=== PATIENT | male | born 1960 | race Caucasian/White ===

== ENCOUNTER 2025-04-08 14:06 | Outpatient (AMB) | payer MEDICARE, MEDICAID, SELFPAY ==
--- NOTE | 2025-04-08 14:15 | MHC.PC.OV ---
Vital Signs 04/08/25 14:27 Height 6 ft 0.44 in Weight 194 lb BMI 26.0 BP 124/86 Blood Pressure Location Rt brachial Position Sitting Respiration 14 Pulse 70 Pulse Source Pulse Oximeter Pulse Oximetry (%) 100 Oxygen Delivery Method Room Air Intake Visit Reasons: est care Intake Note: New patient visit Data Entry Coordinator Required: No Allergies No Known Allergies Allergy (Verified 04/08/25 14:23) Tobacco use date assessed: 04/08/25 Fall risk assessment: No Falls in past year Last assessed Fall Risk: 04/08/25 Dental Screening Dental Screen Date: 04/08/25 Did you have a dental visit in the last 12 months?: No Did you have a dental problem in the last 6 months where you did not have access to dental care?: No Was dental information given to patient?: Patient has dentist HPI est care HPI Details Patient is a 64-year-old male who presents today to [facility]. He is transferring from [facility]. hx of ddd, vit d deficiency. He states that he would like to run some labs and have some imaging prior to leaving for [facility]. He plans on moving there this summer/early fall. Msk: he has a history of spinal stenosis of the lumbar spine. He does get radiculopathy down both legs. He has had an EMG before and followed with Neurosurgery. 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 He complains today of neck pain x 4 months. He states it is mostly on the right side, sometimes the left is bothered. It does radiate down the right arm at times. Denies any specific injury. At times it does feel like the lymph nodes are swollen in his neck as well and he is not sure if it is related to the neck pain or if he has something such as an infection. No fever, chills, vision changes. Sometimes the neck pain does cause somewhat of a headache. CV: Blood pressure today in the office is 124/86. Colonoscopy: Colonoscopy UTD 2022- due in 2032 PSA: Overdue Low-dose CAT scan screening: Quit smoking a couple of months ago. Has smoked for many years and declines lung cancer screening. He is aware of the risks and he is aware that if caught early lung cancer has a better prognosis. 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 1. Little interest or pleasure in doing things: nearly every day 2. Feeling down, depressed, or hopeless: not at all 3. Trouble falling or staying asleep, or sleeping too much: not at all 4. Feeling tired or having little energy: several days 5. Poor appetite or overeating: not at all 6. Feeling bad about yourself - or that you are a failure or have let yourself or your family down: not at all 7. Trouble concentrating on things, such as reading the newspaper or watching television: not at all 8. Moving or speaking so slowly that other people could have noticed. Or the opposite - being so fidgety or restless that you have been moving around a lot more than usual: not at all 9. Thoughts that you would be better off or of hurting yourself in some way: not at all Total score: 4 Depression Screening Interpretation: Negative Depression Screening Done: Yes 49352 - PHQ-9 Billing: Yes Source: Developed by Drs. Nickolas Stroud, Carey Barr, Cesar Reilly and colleagues, with an educational susie from [employer]. Thrive Questionnaire Date Thrive assessed: 04/01/25 I am a: Patient What is your living situation today?: I have a steady place to live Within the past 12 months, did the food you bought not last and you didn't have the money to get more?: Never true Within the past 12 months, did you worry whether your food would run out before you got money to buy more?: Never true Do you have trouble paying for medicines?: No Do you have trouble getting transportation to medical appointments?: No Do you have trouble paying your heating and electricity bill?: No Do you have trouble taking care of your child, family member or friend?: No Do you have trouble with day-to-day activities such as bathing, preparing meals, shopping, managing finances, etc.?: No Are you currently unemployed and looking for a job?: No Are you interested in more education?: I choose not to answer this question Please select the resources that you would like help with: None Currently or been in a relationship where the following occur: No concerns reported THRIVE Score: 0 AUDIT C Alcohol Use Questionnaire (AUDIT-C) 1. How often do you have a drink containing alcohol?: Never 2. How many drinks containing alcohol do you have on a typical day when you are drinking?: 1 or 2 3. How often do you have six or more drinks on one occasion?: Never Total Score: 0 AVERY-7 AMB Questionnaire AVERY-7 Feeling nervous, anxious, or on edge: 0 = Not at all Not being able to stop or control worryin = Not at all Worrying too much about different things: 0 = Not at all Trouble relaxin = Not at all Being so restless that it is hard to sit still: 0 = Not at all Becoming easily annoyed or irritable: 0 = Not at all Feeling afraid as if something awful might happen: 0 = Not at all Total AVERY-7 score (0-4 normal; 5-9 mild; 10-14 moderate; 15-21 severe): 0 Source: Developed by Drs. Nickolas Stroud, Carey Barr, Cesar Reilly and colleagues, with an educational susie from [employer]. Physical exam (Primary Care) Vital Signs: Last Vital Signs Pulse 70 04/08/25 14:27 Resp 14 04/08/25 14:27 BP 124/86 04/08/25 14:27 Pulse Ox 100 04/08/25 14:27 Oxygen Delivery Method Room Air 04/08/25 14:27 BMI result Body Mass Index 26.0 Tobacco/Smoking Status: Tobacco use Status Tobacco use date assessed 04/08/25 04/08/25 14:32 Patient Tobacco Use Status Former Tobacco user 04/08/25 14:32 e-Cigarette/Vaping Use Never Used 04/08/25 14:32 PHQ-9: PHQ-9 Score PHQ-9: Total score 4 04/08/25 14:32 Depression Screening Interpretation: Negative Thrive Assessment: Date of Thrive Assessment Date Thrive assessed 04/01/25 04/08/25 14:32 Currently or been in a relationship where the following occur: No concerns reported Const Orientation/consciousness: patient oriented x3 HENMT Ears: hearing grossly normal bilaterally Neck Other: There is a mobile, marble-sized lump noted on the posterior right side of the neck. Thyroid: Thyroid normal Lymphatic: no lymphadenopathy noted Chest Other: There is a an approximately 6 in x 5 in subcutaneous lump noted on the left lateral chest wall. Resp Auscultation: clear to auscultation bilaterally Cardio Rate: regular rate Rhythm: regular rhythm Heart sounds: S1 normal heart sound present and S2 normal heart sound present GI Inspection: Yes normal to inspection Palpation (GI): Soft to palpation and Other GI palpation findings present (nontender, no cva tenderness) Auscultation: normoactive bowel sounds Rectal Exam - Male: Yes deferred Skin General skin exam: no rashes or lesions noted Neuro General: patient oriented x3, gait normal and no focal motor deficits Coding Level of Care Code New Pt Level 4 (49730) Complex EM visit Add On G2211 Diagnoses Lumbar pain with radiation down both legs M54.50; M79.604; M79.605 Chronic neck pain M54.2; G89.29 Dyslipidemia E78.5 Polyarthralgia M25.50 Former smoker Z87.891 Vitamin D deficiency E55.9 Lump on neck R22.1 Lump in chest R22.2 Additional Codes PHQ-9 - 18405 - PHQ-9 Billing: Yes ([id number]) Assessment & Plan Assessment & Plan (1) Lumbar pain with radiation down both legs: Code(s): M54.50 - Low back pain, unspecified; M79.604 - Pain in right leg; M79.605 - Pain in left leg Category: Medical Plan: Stable. Does not wish for further workup. (2) Chronic neck pain: Code(s): M54.2 - Cervicalgia; G89.29 - Other chronic pain Category: Medical Plan: X-ray ordered. Labs ordered. We will follow up pending test results (3) Dyslipidemia: Code(s): E78.5 - Hyperlipidemia, unspecified Category: Medical Plan: Reports a history of high cholesterol and states that he would be against statins but wants to know what his labs look like. (4) Polyarthralgia: Code(s): M25.50 - Pain in unspecified joint Category: Medical Plan: Labs ordered (5) Former smoker: Code(s): Z87.891 - Personal history of nicotine dependence Category: Social Hx Plan: He will let me know if he changes his mind in regards to lung cancer screening. He is asymptomatic. (6) Vitamin D deficiency: Code(s): E55.9 - Vitamin D deficiency, unspecified Category: Medical Plan: Vitamin-D ordered (7) Lump on neck: Code(s): R22.1 - Localized swelling, mass and lump, neck Category: Medical Plan: Ultrasound ordered (8) Lump in chest: Code(s): R22.2 - Localized swelling, mass and lump, trunk Category: Medical Plan: Ultrasound ordered and referral to General surgery Orders: Orders Comprehensive [place]. Panel Fast Today E78.5 - Hyperlipidemia, unspecified, G89.29 - Other chronic pain, M25.50 - Pain in unspecified joint, M54.2 - Cervicalgia, M54.50 - Low back pain, unspecified, M79.604 - Pain in right leg, M79.605 - Pain in left leg, Z87.891 - Personal history of nicotine dependence Hemoglobin A1c Today E78.5 - Hyperlipidemia, unspecified, G89.29 - Other chronic pain, M25.50 - Pain in unspecified joint, M54.2 - Cervicalgia, M54.50 - Low back pain, unspecified, M79.604 - Pain in right leg, M79.605 - Pain in left leg, R73.01 - Impaired fasting glucose, Z87.891 - Personal history of nicotine dependence Lipid Panel Today E78.5 - Hyperlipidemia, unspecified, G89.29 - Other chronic pain, M25.50 - Pain in unspecified joint, M54.2 - Cervicalgia, M54.50 - Low back pain, unspecified, M79.604 - Pain in right leg, M79.605 - Pain in left leg, Z87.891 - Personal history of nicotine dependence UA CC w/rflx Micro + Cult Today E78.5 - Hyperlipidemia, unspecified, G89.29 - Other chronic pain, M25.50 - Pain in unspecified joint, M54.2 - Cervicalgia, M54.50 - Low back pain, unspecified, M79.604 - Pain in right leg, M79.605 - Pain in left leg, Z13.220 - Encounter for screening for lipoid disorders, Z87.891 - Personal history of nicotine dependence TSH reflex Free T4 Today E78.5 - Hyperlipidemia, unspecified, G89.29 - Other chronic pain, M25.50 - Pain in unspecified joint, M54.2 - Cervicalgia, M54.50 - Low back pain, unspecified, M79.604 - Pain in right leg, M79.605 - Pain in left leg, Z87.891 - Personal history of nicotine dependence Prostate Specific Antigen Scr Today E78.5 - Hyperlipidemia, unspecified, G89.29 - Other chronic pain, M25.50 - Pain in unspecified joint, M54.2 - Cervicalgia, M54.50 - Low back pain, unspecified, M79.604 - Pain in right leg, M79.605 - Pain in left leg, Z01.89 - Encounter for other specified special examinations, Z87.891 - Personal history of nicotine dependence Lyme IgG/IgM w/reflex to WB Today E78.5 - Hyperlipidemia, unspecified, G89.29 - Other chronic pain, M25.50 - Pain in unspecified joint, M54.2 - Cervicalgia, M54.50 - Low back pain, unspecified, M79.604 - Pain in right leg, M79.605 - Pain in left leg, Z87.891 - Personal history of nicotine dependence Vitamin B12 and Folate Today E78.5 - Hyperlipidemia, unspecified, G89.29 - Other chronic pain, M25.50 - Pain in unspecified joint, M54.2 - Cervicalgia, M54.50 - Low back pain, unspecified, M79.604 - Pain in right leg, M79.605 - Pain in left leg, Z87.891 - Personal history of nicotine dependence Rheumatoid Factor Today E78.5 - Hyperlipidemia, unspecified, G89.29 - Other chronic pain, M25.50 - Pain in unspecified joint, M54.2 - Cervicalgia, M54.50 - Low back pain, unspecified, M79.604 - Pain in right leg, M79.605 - Pain in left leg, Z87.891 - Personal history of nicotine dependence US soft tiss head and/or neck Today R22.1 - Localized swelling, mass and lump, neck, R22.2 - Localized swelling, mass and lump, trunk Complete Blood Count Auto Diff Today E78.5 - Hyperlipidemia, unspecified, G89.29 - Other chronic pain, M25.50 - Pain in unspecified joint, M54.2 - Cervicalgia, M54.50 - Low back pain, unspecified, M79.604 - Pain in right leg, M79.605 - Pain in left leg, Z87.891 - Personal history of nicotine dependence Magnesium Today E78.5 - Hyperlipidemia, unspecified, G89.29 - Other chronic pain, M25.50 - Pain in unspecified joint, M54.2 - Cervicalgia, M54.50 - Low back pain, unspecified, M79.604 - Pain in right leg, M79.605 - Pain in left leg, Z87.891 - Personal history of nicotine dependence GENTRY Reflex Titer and Pattern Today E78.5 - Hyperlipidemia, unspecified, G89.29 - Other chronic pain, M25.50 - Pain in unspecified joint, M54.2 - Cervicalgia, M54.50 - Low back pain, unspecified, M79.604 - Pain in right leg, M79.605 - Pain in left leg, Z87.891 - Personal history of nicotine dependence Erythrocyte Sedimentation Rate Today E78.5 - Hyperlipidemia, unspecified, G89.29 - Other chronic pain, M25.50 - Pain in unspecified joint, M54.2 - Cervicalgia, M54.50 - Low back pain, unspecified, M79.604 - Pain in right leg, M79.605 - Pain in left leg, Z87.891 - Personal history of nicotine dependence Vitamin D 25-OH Total Today E78.5 - Hyperlipidemia, unspecified, G89.29 - Other chronic pain, M25.50 - Pain in unspecified joint, M54.2 - Cervicalgia, M54.50 - Low back pain, unspecified, M79.604 - Pain in right leg, M79.605 - Pain in left leg, Z87.891 - Personal history of nicotine dependence XR cervical spine 3V Today M54.2 - Cervicalgia, R22.1 - Localized swelling, mass and lump, neck, R22.2 - Localized swelling, mass and lump, trunk US chest Today R22.2 - Localized swelling, mass and lump, trunk Referrals General Surgery Referral R22.1 - Localized swelling, mass and lump, neck, R22.2 - Localized swelling, mass and lump, trunk
--- OUTSIDE RECORDS SUMMARY | 2025-04-08 14:15 | XMS_ITS | Referral Summary ---
Author Organization [facility] Address [address] [id number] Care Team Providers Care Web Developer Programmer Name Role Phone Migonn Stone Primary Care Provider Allergies No known active allergies Medications pantoprazole DR (PROTONIX) 20 mg tablet Take 1 tablet (20 mg total) by mouth once a day. 20 tablet 03/13/2022 Active Social History Tobacco Use Types Packs/Day Years Used Date Smoking Tobacco: Never Assessed Sex and Gender Information Value Date Recorded Sex Assigned at Not on file Legal Sex Male 3:59 PM EST Gender Identity Not on file Sexual Orientation Not on file Last Filed Vital Signs Vital Sign Reading Time Taken Comments Blood Pressure 147/97 03/13/2022 10:00 AM EDT Pulse 61 03/13/2022 12:00 PM EDT Temperature 36.3 ??C (97.3 ??F) 03/13/2022 5:46 AM ED T Respiratory Rate 15 03/13/2022 12:00 PM EDT Oxygen Saturation 100% 03/13/2022 12:00 PM EDT Inhaled Oxygen Concentration - - Weight 79.4 kg (175 lb) 03/13/2022 5:46 AM EDT Height 182.9 cm (6') 03/13/2022 5:46 AM EDT Body Mass Index 23.73 03/13/2022 5:46 AM EDT Plan of Treatment Not on file Insurance [facility] on file HS/FREE CARE Care Teams Web Developer Programmer Relationship Specialty Start Date End Date Mignon Stone PCP - General 03/13/22
[2025-04-08 14:27] VITALS: BP 124/86; PULSE 70; RESP 14; O2SAT 100; BMI 26.0
== END 2025-04-08 15:07 | disposition home or self-care (01) ==
LOC: HO.HMCFM 14:07
PROVIDERS: PCP Physician Assistant; Visit Provider Physician Assistant
DX: M54.50 Low back pain, unspecified (principal); M79.604 Pain in right leg; M79.605 Pain in left leg; M54.2 Cervicalgia; G89.29 Other chronic pain; E78.5 Hyperlipidemia, unspecified; M25.50 Pain in unspecified joint; Z87.891 Personal history of nicotine dependence; E55.9 Vitamin D deficiency, unspecified; R22.1 Localized swelling, mass and lump, neck; R22.2 Localized swelling, mass and lump, trunk

== ENCOUNTER → 2025-04-08 14:06 | Outpatient (BNVA) | payer MEDICARE, SELFPAY | PROVIDERS: PCP Physician Assistant; Visit Provider Physician Assistant | DX: M54.50 Low back pain, unspecified (principal); M79.604 Pain in right leg; M79.605 Pain in left leg; M54.2 Cervicalgia; G89.29 Other chronic pain; E55.9 Vitamin D deficiency, unspecified; R22.1 Localized swelling, mass and lump, neck; R22.2 Localized swelling, mass and lump, trunk; Z87.891 Personal history of nicotine dependence | CPT/HCPCS: 96127; 99202 ==

== ENCOUNTER 2025-04-09 07:51 | Outpatient (REF) | payer MEDICARE, SELFPAY ==
--- OUTSIDE RECORDS SUMMARY | 2025-04-09 07:55 | XMS_ITS | Referral Summary ---
Author Organization [facility] Address [address] [id number] Care Team Providers Care Customer Records Division Supervisor Name Role Phone Mignon Stone Primary Care Provider Allergies No known [...] Plan of Treatment Not on file [facility] Care Teams Customer Records Division Supervisor Relationship Specialty Start Date End Date Mignon Stone PCP - General 03/13/22
[2025-04-09 11:19] LABS: MANUAL DIFF FLAG NO
[2025-04-09 11:35] LABS: Basophils Absolute Auto 0.1 X10*3/uL (0.0-0.2); Basophils Percent Auto 0.9 % (0-2); Eosinophils Absolute Auto 0.3 X10*3/uL (0.0-0.4); Eosinophils Percent Auto 3.9 % (0-4); Hematocrit 44.7 % (42.0-52.0); Hemoglobin 15.8 g/dl (14.0-18.0); Imm Gran Abs Auto 0.07 X10*3/uL (0.00-0.03); Lymphocytes Absolute Auto 2.3 X10*3/uL (1.2-4.9); Lymphocytes Percent Auto 33.5 % (20-40); Mean Corpuscular HGB Conc 35.3 g/dl (31.0-36.0); Mean Corpuscular Hemoglobin 30.8 pg (27.0-33.0); Mean Corpuscular Volume 87.1 fL (80.0-98.0); Mean Platelet Volume 10.7 fL (9.4-12.4); Monocytes Absolute Auto 0.7 X10*3/uL (0.1-1.2); Monocytes Percent Auto 9.6 % (2-11); Neutrophils Absolute Auto 3.6 x10*3/uL (2.0-8.3); Neutrophils Percent Auto 51.1 % (45-73); Platelet Count 243 X10*3/uL (160-400); Red Blood Count 5.13 X10*6/uL (4.60-5.80); Red Cell Distribution Width 13.1 % (11.0-16.0)
[2025-04-09 11:48] LABS: Estimated Average Glucose 97 mg/dL; Hemoglobin A1C 128.1337 umol/L; Total Hemoglobin (HGBA1C) 4112.2933 umol/L
[2025-04-09 11:50] LABS: Rheumatoid Factor < 13.0 IU/mL (<15.0)
[2025-04-09 12:07] LABS: Alanine Aminotransferase 44 U/L (0-40); Albumin Level 4.2 g/dL (3.5-5.0); Alkaline Phosphatase 79 U/L (39-117); Anion Gap 11 (12-20); Aspartate Amino Transferase 31 U/L (5-37); Bilirubin Total 0.5 mg/dL (0.0-1.0); Blood Urea Nitrogen 20 mg/dL (9-16); Carbon Dioxide 27 mmol/L (22-29); Chloride 108 mmol/L (96-108); Cholesterol 211 mg/dL (<200); Estimated Glomerular Filt Rate > 60; Glucose Fasting 96 mg/dL (60-99); HDL Cholesterol 45 mg/dL (>40); LDL Cholesterol Calculated 137 mg/dL (<100); Potassium 4.3 mmol/L (3.3-5.1); Sodium 142 mmol/L (135-145); TSH reflex Free T4 1.48 uIU/mL (0.32-4.0); Total Protein 6.9 g/dL (6.5-8.0); Triglycerides 149 mg/dL (<150); Vitamin D 25-OH Total 83.5 ng/mL (>30)
[2025-04-09 12:17] LABS: Erythrocyte Sedimentation Rate 2 MM/HR (0-15)
[2025-04-09 12:29] LABS: Folate 13.4 ng/mL (> or = 4.0); Prostate Specific Antigen Scr 1.69 ng/mL (<0.05-4.0); Vitamin B12 293 pg/mL (200-900)
[2025-04-09 14:36] LABS: Appearance Urine Clear; Color Urine Yellow; Glucose Urine UA Negative (Negative); Leukocyte Esterase Urine Negative (Negative); Nitrite Urine Negative (Negative); PH 6.5 (5.0-9.0); Specific Gravity - Urine 1.015 (1.005-1.025); Urine Blood Negative (Negative); Urine Ketones Negative (Negative); Urine Protein Negative (Neg-Trace)
[2025-04-10 09:08] LABS: Lyme Abs Screen <0.90 index
[2025-04-15 08:19] LABS: Anti Nuclear Antibody Screen POSITIVE (NEGATIVE); Anti Nuclear Antibody Titer 1:40 titer
== END 2025-04-09 07:52 | disposition home or self-care (01) ==
LOC: HO.WFDLDS 07:51
PROVIDERS: Visit Provider Physician Assistant
DX: M54.50 Low back pain, unspecified (principal); M79.604 Pain in right leg; M79.605 Pain in left leg; M54.2 Cervicalgia; G89.29 Other chronic pain; E78.5 Hyperlipidemia, unspecified; M25.50 Pain in unspecified joint; Z87.891 Personal history of nicotine dependence; Z01.89 Encounter for other specified special examinations; R73.01 Impaired fasting glucose; Z13.220 Encounter for screening for lipoid disorders; Z12.5 Encounter for screening for malignant neoplasm of prostate
CPT/HCPCS: 36415; 80053; 80061; 81003; 82306; 82607; 82746; 83036; 83735; 84153; 84443; 85025; 85652; 86038; 86039; 86431; 86617; 86618

== ENCOUNTER 2025-04-23 08:35 | Outpatient (REF) | payer MEDICARE, SELFPAY ==
--- NOTE | ~2025-04-23 | US_ITS ---
CLINICAL HISTORY: R22.2 - Localized swelling, mass and lump, trunk Ultrasound of the soft tissues of the abdominal wall and posterior neck COMPARISON: None FINDINGS: Dedicated ultrasound imaging was performed over the anterior abdominal wall in the left upper quadrant. In the region of concern there is a heterogeneous avascular isoechoic well-defined lesion with thin internal septations parallel to transducer measuring in total 4.9 x 1.0 x 3.7 cm. No capsular disruption or surrounding hyperemia. Dedicated ultrasound imaging was performed along the right posterior neck. In the region of concern there is a heterogeneous avascular mildly hypoechoic ill-defined lesion with increased through transmission measuring in total 1.0 x 0.5 x 0.8 cm. No definite communication through the overlying skin is identified. IMPRESSION: 1. 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 No aggressive features. 2. Indeterminate ill-defined complex avascular lesion along the posterior right neck measuring up to 1.0 cm. This could represent a sebaceous cyst, possibly previously ruptured, although is technically indeterminate and there is no definite communication through the overlying skin. Short-term follow-up imaging is likely appropriate. This document has been electronically signed by: Rk Sanders MD on 04/23/2025 16:26:12
--- OUTSIDE RECORDS SUMMARY | 2025-04-23 08:48 | XMS_ITS | Referral Summary ---
Author Organization [facility] Address [address] [place] [address] Care Team Providers Care Screen Printing Cloth Spreader Name Role Phone Mignon Stone Primary Care [...] Plan of Treatment Not on file Insurance [facility] on file HS/FREE CARE Care Teams Screen Printing Cloth Spreader Relationship Specialty Start Date End Date Mignon Stone PCP - General 03/13/22
== END 2025-04-23 08:36 | disposition home or self-care (01) ==
LOC: HO.HMGCX 08:35
PROVIDERS: PCP Physician Assistant; Visit Provider Physician Assistant
DX: R22.2 Localized swelling, mass and lump, trunk (principal)
CPT/HCPCS: 76604

== ENCOUNTER → 2025-04-23 09:10 | Outpatient (BNV) | payer MEDICARE, MEDICAID, SELFPAY | PROVIDERS: PCP Physician Assistant; Visit Provider Radiology Diagnostic Radiology | DX: R22.2 Localized swelling, mass and lump, trunk (principal) | CPT/HCPCS: 76604 ==

== ENCOUNTER 2025-04-28 10:39 | Outpatient (AMB) | payer MEDICARE, MEDICAID, SELFPAY ==
--- NOTE | 2025-04-28 10:02 | A.OFFPC_ITS ---
Intake Visit Reasons: concern of thyroid issue/throat issue Intake Note: Concerned of thyroid issue, cancer, ect. Has been having sob lately. Had to buy his own over the counter inhaler. Community Center Coordinator Required: No Allergies No Known Allergies Allergy (Verified 04/28/25 10:03) Medication List - Last Reconciled 04/28/25 by Hedy Callaway PA-C acetaminophen (Tylenol) 650 mg PO Q6H PRN ibuprofen 200 mg PO Q6H PRN multivitamin 1 tab PO DAILY Tobacco use date assessed: 04/28/25 Dental Screening Dental Screen Date: 04/08/25 HPI concern of thyroid issue/throat issue HPI0 Details Patient is a 64-year-old male who presents today for a follow up. He is relatively new here. hx of ddd, vit d deficiency. HEENT: He does complain today of ongoing sore throat. When I saw him at his visit he complained of neck pain for about 4 months mostly on the right side. He says it still hurts some but the almost feels like there is something internal. He states he did not mention it last time because he did not think it meant anything. He does not notice any discoloration of the inside of his mouth or any increased redness. On our telehealth today he does not notice that anything looks enlarged or swollen. He states that his lymph nodes feel a little bit enlarged on the right side only but nothing on the inside of his mouth. He did have a neck ultrasound which showed a possible cyst. He states that it feels like the inside of his throat gets swollen but he does not really have any significant pain with it. He does not notice a change with swallowing. No difficulty swallowing or weight loss. He states sometimes it just feels like the lymph nodes get swollen. He did states that he does not have any heartburn. He does drink a lot of coffee. He is a former smoker. No fevers or chills. He states he wonders if he has allergies but he does not have any rhinorrhea or postnasal drip. He has not tried an allergy pill. He did not yet get the neck x-ray done. Msk: he has a history of spinal stenosis of the lumbar spine. He does get radiculopathy down both legs. He has had an EMG before and followed with Neur osurgery. 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 He complains today of neck pain x 4 months. He states it is mostly on the right side, sometimes the left is bothered. It does radiate down the right arm at times. Denies any specific injury. He states he has multiple joint pains but can live with them. Colonoscopy: Colonoscopy UTD 2022- due in 2032 PSA: Overdue Low-dose CAT scan screening: Quit smoking a couple of months ago. Has smoked for many years and declines lung cancer screening. 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) Questionnaire Thrive Questionnaire Date Thrive assessed: 04/01/25 Physical exam (Primary Care) Tobacco/Smoking Status: Tobacco use Status Tobacco use date assessed 04/28/25 04/28/25 10:04 Patient Tobacco Use Status Former Tobacco user 04/28/25 10:04 e-Cigarette/Vaping Use Never Used 04/28/25 10:04 Thrive Assessment: Date of Thrive Assessment Date Thrive assessed 04/01/25 04/28/25 10:04 Telehealth Telehealth Telehealth Platform: Telephone Location of provider rendering services: practice address Location of patient: address on file Patient Identification confirmed using: Name, : Yes Telehealth method: voice only Patient verbally consented to treatment: Yes Patient verbally consented to billing insurance company: Yes Patient informed of any privacy concerns related to visit: Yes Minutes spent on Phone/Video with Pt.: 38 Results Reviewed Results Reviewed: Laboratory Tests 04/09/25 07:51 WBC 7.0 RBC 5.13 Hgb 15.8 Hct 44.7 Plt Count 243 Sodium 142 Potassium 4.3 Chloride 108 Carbon Dioxide 27 Anion Gap 11 L BUN 20 H Creatinine 1.00 Estimated GFR > 60 Fasting Glucose 96 Hemoglobin A1c % 5.0 Calcium 9.0 Magnesium 2.0 Total Bilirubin 0.5 AST 31 ALT 44 H Alkaline Phosphatase 79 Total Protein 6.9 Albumin 4.2 Triglycerides 149 Cholesterol 211 H LDL Cholesterol, Calc 137 H HDL Cholesterol 45 PSA Screen 1.69 Vitamin B12 293 25-OH Vitamin D Total 83.5 TSH 1.48 Rheumatoid Factor < 13.0 GENTRY Screen POSITIVE A GENTRY Titer 1:40 H GENTRY Pattern A Lyme Screen IgG & IgM <0.90 IMPRESSION: 1. 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 No aggressive features. 2. Indeterminate ill-defined complex avascular lesion along the posterior right neck measuring up to 1.0 cm. This could represent a sebaceous cyst, possibly previously ruptured, although is technically indeterminate and there is no definite communication through the overlying skin. Short-term follow-up imaging is likely appropriate. Coding Level of Care Code Tele Est Pt Level 4 (32776) Diagnoses Low vitamin B12 level R79.89 Positive GENTRY (antinuclear antibody) R76.8 Chronic neck pain M54.2; G89.29 Lump in chest R22.2 Lump on neck R22.1 Dyslipidemia E78.5 Sore throat J02.9 Elevated LFTs R79.89 Assessment & Plan Assessment & Plan (1) Low vitamin B12 level: Code(s): R79.89 - Other specified abnormal findings of blood chemistry Category: Medical Plan: will take supplement (2) Positive GENTRY (antinuclear antibody): Code(s): R76.8 - Other specified abnormal immunological findings in serum Category: Medical Plan: rheumatology reviewed and felt clinically insignficant. pt understands (3) Chronic neck pain: Code(s): M54.2 - Cervicalgia; G89.29 - Other chronic pain Category: Medical Plan: does not want to consult pain management states neck is stable (4) Lump in chest: Code(s): R22.2 - Localized swelling, mass and lump, trunk Category: Medical Plan: Consistent on ultrasound with lipoma Has follow up with neurosurgery (5) Lump on neck: Code(s): R22.1 - Localized swelling, mass and lump, neck Category: Medical Plan: Likely cyst however recommendation from Radiology is follow up. Has scheduled follow up with General surgery ct ordered-prefers this done at [facility]. Advised short term follow up (6) Dyslipidemia: Code(s): E78.5 - Hyperlipidemia, unspecified Category: Medical Plan: Working on his diet. (7) Sore throat: Code(s): J02.9 - Acute pharyngitis, unspecified Plan: CT neck ordered. Has short term follow up We will try Xyzal. (8) Elevated LFTs: Code(s): R79.89 - Other specified abnormal findings of blood chemistry Plan: He will repeat labs next month. Orders: Orders CT soft tissue neck w IV con Today G89.29 - Other chronic pain, J02.9 - Acute pharyngitis, unspecified, M54.2 - Cervicalgia, R22.1 - Localized swelling, mass and lump, neck, Z87.891 - Personal history of nicotine dependence Medications: New levocetirizine (Xyzal) 5 mg PO QPM 30 tabs 0RF
--- OUTSIDE RECORDS SUMMARY | 2025-04-28 12:06 | XMS_ITS | Referral Summary ---
Author Organization [facility] Address [address] [place] [address] Care Team Providers Care Manager Hardware Name Role Phone Mignon Stone Primary Care [...] Plan of Treatment Not on file Insurance [facility] on file HS/FREE CARE Care Teams Manager Hardware Relationship Specialty Start Date End Date Mignon Stone PCP - General 03/13/22
== END 2025-04-28 11:01 | disposition home or self-care (01) ==
LOC: HO.HMCFM 10:39
PROVIDERS: PCP Physician Assistant; Visit Provider Physician Assistant
DX: R79.89 Other specified abnormal findings of blood chemistry (principal); R76.8 Other specified abnormal immunological findings in serum; M54.2 Cervicalgia; G89.29 Other chronic pain; R22.2 Localized swelling, mass and lump, trunk; R22.1 Localized swelling, mass and lump, neck; E78.5 Hyperlipidemia, unspecified; J02.9 Acute pharyngitis, unspecified

== ENCOUNTER → 2025-04-28 10:39 | Outpatient (BNVA) | payer MEDICARE, SELFPAY | PROVIDERS: PCP Physician Assistant; Visit Provider Physician Assistant | DX: G89.29 Other chronic pain (principal); M54.2 Cervicalgia; R22.1 Localized swelling, mass and lump, neck; J02.9 Acute pharyngitis, unspecified; Z87.891 Personal history of nicotine dependence; Z13.89 Encounter for screening for other disorder ==

== ENCOUNTER 2025-04-30 10:35 | Outpatient (REF) | payer MEDICARE, SELFPAY ==
--- NOTE | ~2025-04-30 | XR_ITS ---
EXAMINATION: XR CERVICAL SPINE 2-3 VIEWS HISTORY: M54.2 - Cervicalgia COMPARISON: There are no prior studies available for comparison. FINDINGS: AP, lateral, and open-mouth odontoid views of the cervical spine are submitted. Osseous mineralization is normal. Seven cervical vertebral bodies are identified maintaining normal height and alignment without evidence of fracture or subluxation. There is moderate degenerative disc disease at the C5-6 level, with disc space narrowing and osteophyte formation. Milder changes are noted at the C4-5 level. The odontoid and lateral masses of C1 are intact. There is no prevertebral soft tissue swelling. Calcifications in the neck bilaterally are likely related to the internal carotid arteries. XR/XR cervical spine 3V IMPRESSION: Degenerative changes of the cervical spine as described. Electronically signed by: Nickolas Douglas MD 04/30/2025 11:36 AM EDT
--- OUTSIDE RECORDS SUMMARY | 2025-04-30 11:37 | XMS_ITS | Referral Summary ---
Author Organization [facility] Address [address] [place] [address] Care Team Providers Care Tour Consultant Name Role Phone Mignon Stone Primary Care [...] Plan of Treatment Not on file Insurance [facility] on file HS/FREE CARE Care Teams Tour Consultant Relationship Specialty Start Date End Date Mignon Stone PCP - General 03/13/22
== END 2025-04-30 10:36 | disposition home or self-care (01) ==
LOC: HO.XRAY 10:35
PROVIDERS: PCP Physician Assistant; Visit Provider Physician Assistant
DX: M54.2 Cervicalgia (principal); R22.1 Localized swelling, mass and lump, neck; R22.2 Localized swelling, mass and lump, trunk
CPT/HCPCS: 72040

== ENCOUNTER → 2025-04-30 10:41 | Outpatient (BNV) | payer MEDICARE, MEDICAID, SELFPAY | PROVIDERS: PCP Physician Assistant; Visit Provider Radiology Diagnostic Radiology | DX: M50.322 Other cervical disc degeneration at C5-C6 level (principal) | CPT/HCPCS: 72040 ==

== ENCOUNTER 2025-05-24 10:32 | Outpatient (AMB) | payer MEDICARE, MEDICAID, SELFPAY ==
[2025-05-24 10:38] VITALS: BP 112/70; BMI 24.7
--- NOTE | 2025-05-24 10:38 | MHC.OFFVIS ---
Vital Signs 05/24/25 10:38 Height 6 ft Weight 182 lb BMI 24.7 BP 112/70 Blood Pressure Location Lt brachial Position Sitting Intake Visit Reasons: mass lump trunk and neck Intake Note: C/o having a lump on rt side of neck for 2 years and a lump on left side of trunk for 10 plus years and on right ear Sales Representative Aircraft Required: No Information Interpreted: clinical only Allergies No Known Allergies Allergy (Verified 05/24/25 10:41) Medication List - Last Reconciled 05/24/25 by Telma Baker LPN ibuprofen 200 mg PO Q6H PRN levocetirizine (Xyzal) 5 mg PO QPM multivitamin 1 tab PO DAILY Do you need a note to return to daycare/school/sports/work: No HPI Comments Details: 64-year-old male patient presenting for evaluation of several skin lesions that have been present for many years but are gradually increasing in size. He denies any pain, bleeding or discharge from any of the sites but is concerned that [place] is moving out of the country soon and would like to have him removed before he leaves. The largest is located in the left lateral chest and was previously evaluated by ultrasound determined to be possibly a lipoma. He denies any previous surgical procedures or trauma in this location. The 2nd is located in the posterior neck in his much smaller and was determined to possibly be a cyst or lipoma. He also reports a new lesion located behind the right ear which lies at the site of his eyeglasses lie behind his ear. He reports this is a small cyst but does cause discomfort because of irritation from the glasses. 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 Cyst posterior ear 0.5 cm Neck Neck images:  1. 2 cm lipoma posterior neck Chest Chest/axillae images:  1. 4 cm lipoma Resp Effort & Inspection: normal respiratory effort, no audible wheezes, no cough and no respiratory distress Neuro General: patient oriented x3 Extrem General: Yes no pedal edema Assessment & Plan Assessment & Plan (1) Lump on neck: Code(s): R22.1 - Localized swelling, mass and lump, neck Category: Medical (2) Lump in chest: Code(s): R22.2 - Localized swelling, mass and lump, trunk Category: Medical (3) Scalp cyst: Code(s): L72.9 - Follicular cyst of the skin and subcutaneous tissue, unspecified Category: Medical Plan 64-year-old male patient presenting with several skin lesions as noted above including a soft tissue mass in the left lower chest consistent with a lipoma, lesion of the posterior neck consisting of a lipoma or epidermal inclusion cyst as well as a scalp cysts behind the right ear. None of the lesions are infected but all seemed to be increasing in size and causing some discomfort. The patient has requested excision of all 3 lesions which certainly could be performed at the same time under local anesthesia as a minor surgery. I reviewed the procedure, risks, and alternatives, he consents to excision of the left lower chest, posterior neck and right posterior ear lumps. Coding Level of Care Code New Pt Level 4 (45861) Diagnoses Lump on neck R22.1 Lump in chest R22.2 Scalp cyst L72.9
--- OUTSIDE RECORDS SUMMARY | 2025-05-24 11:22 | XMS_ITS | Referral Summary ---
Author Organization [facility] Address [address] [place] [address] Care Team Providers Care Talent Acquisition Associate Name Role Phone Mignon Stone Primary Care [...] 61 03/13/2022 12:00 PM EDT Temperature 36.3 C (97.3 F) 03/13/2022 5:46 AM EDT Respiratory Rate 15 03/13/2022 12:00 PM EDT Oxygen Saturation 100% 03/13/2022 12:00 PM EDT Inhaled Oxygen Concentration - - Weight 79.4 kg (175 lb) 03/13/2022 5:46 AM EDT Height 182.9 cm (6') 03/13/2022 5:46 AM EDT Body Mass Index 23.73 03/13/2022 5:46 AM EDT Plan of Treatment Not on file Insurance [facility] on file HS/FREE CARE Care Teams Talent Acquisition Associate Relationship Specialty Start Date End Date Mignon Stone PCP - General 03/13/22
== END 2025-05-24 11:18 | disposition home or self-care (01) ==
LOC: HO.HGS 10:33
PROVIDERS: PCP Physician Assistant; Visit Provider Surgery
DX: R22.1 Localized swelling, mass and lump, neck (principal); R22.2 Localized swelling, mass and lump, trunk; L72.9 Follicular cyst of the skin and subcutaneous tissue, unspecified
CPT/HCPCS: 99204

== ENCOUNTER → 2025-05-24 10:32 | Outpatient (BNVA) | payer MEDICARE, MEDICAID, SELFPAY | PROVIDERS: PCP Physician Assistant; Visit Provider Surgery | DX: R22.1 Localized swelling, mass and lump, neck (principal); R22.2 Localized swelling, mass and lump, trunk; L72.9 Follicular cyst of the skin and subcutaneous tissue, unspecified; Z79.899 Other long term (current) drug therapy | CPT/HCPCS: 99202 ==

== ENCOUNTER 2025-05-26 09:14 | Outpatient (REF) | payer MEDICARE, MEDICAID, SELFPAY ==
--- OUTSIDE RECORDS SUMMARY | 2025-05-26 09:32 | XMS_ITS | Referral Summary ---
Author Organization [facility] Address [address] [place] [address] Care Team Providers Care Piggery Worker Name Role Phone Mignon Stone Kylah Primary Care Provider Allergies No known active [...] Plan of Treatment Not on file Insurance [facility] on file HS/FREE CARE Care Teams Piggery Worker Relationship Specialty Start Date End Date Mignon Stone PCP - General 03/13/22
[2025-05-26 11:55] LABS: Alanine Aminotransferase 28 U/L (0-40); Albumin Level 4.3 g/dL (3.5-5.0); Alkaline Phosphatase 77 U/L (39-117); Aspartate Amino Transferase 31 U/L (5-37); Total Protein 6.5 g/dL (6.5-8.0)
== END 2025-05-26 09:15 | disposition home or self-care (01) ==
LOC: HO.WFDLDS 09:14
PROVIDERS: Visit Provider Physician Assistant
DX: R79.89 Other specified abnormal findings of blood chemistry (principal)
CPT/HCPCS: 36415; 80076

== ENCOUNTER 2025-06-02 09:30 | Outpatient (AMB) | payer MEDICARE, MEDICAID, SELFPAY ==
--- NOTE | 2025-06-02 09:44 | A.OFFPC_ITS ---
Vital Signs 06/02/25 09:50 Height 6 ft Weight 182 lb 8 oz BMI 24.7 BP 127/79 Blood Pressure Location Lt brachial Position Sitting Respiration 12 Pulse 69 Pulse Source Pulse Oximeter Temp 98.3 F Temp Source Oral Pulse Oximetry (%) 98 Oxygen Delivery Method Room Air Intake Visit Reasons: sore throat/imaging Intake Note: Follow up on throat concern/ imaging Asphalt Heater Operator Required: No Allergies No Known Allergies Allergy (Verified 06/02/25 09:46) Tobacco use date assessed: 06/02/25 Fall risk assessment: No Falls in past year Last assessed Fall Risk: 06/02/25 Dental Screening Dental Screen Date: 04/08/25 HPI sore throat/imaging HPI Details Patient is a 64-year-old male who presents today for a follow up. HEENT: He was never called and scheduled for his next CT. He did have an ultrasound which recommended this. He states that since going on the antihistamine it does appear that the sore throat has gotten a lot better/resolved. No difficulty swallowing. No persistent swelling in the neck. He did not yet get the neck x-ray done. Msk: he has a history of spinal stenosis of the lumbar spine. He does get radiculopathy down both legs. He has had an EMG before and followed with Neurosurgery. 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 He does have chronic neck pain and has started some physical therapy and feels a lot better with this. His neck x-ray did show some arthritis. He states he has multiple joint pains but can live with them. General: Has multiple cyst and lipoma and waiting for a surgical date to have these excised as they have grown in size and are bothersome. Colonoscopy: Colonoscopy UTD 2022- due in 2032 PSA: Up-to-date Low-dose CAT scan screening: Quit smoking a couple of months ago. Has smoked for many years and declines lung cancer screening. 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) Questionnaire Thrive Questionnaire Date Thrive assessed: 04/01/25 I am a: Patient What is your living situation today?: I have a steady place to live Within the past 12 months, did the food you bought not last and you didn't have the money to get more?: Never true Within the past 12 months, did you worry whether your food would run out before you got money to buy more?: Never true Do you have trouble paying for medicines?: No Do you have trouble getting transportation to medical appointments?: No Do you have trouble paying your heating and electricity bill?: No Do you have trouble taking care of your child, family member or friend?: No Do you have trouble with day-to-day activities such as bathing, preparing meals, shopping, managing finances, etc.?: No Are you currently unemployed and looking for a job?: No Are you interested in more education?: I choose not to answer this question Please select the resources that you would like help with: None Currently or been in a relationship where the following occur: No concerns reported THRIVE Score: 0 Physical exam (Primary Care) Vital Signs: Last Vital Signs Temp 98.3 F 06/02/25 09:50 Pulse 69 06/02/25 09:50 Resp 12 06/02/25 09:50 BP 127/79 06/02/25 09:50 Pulse Ox 98 06/02/25 09:50 Oxygen Delivery Method Room Air 06/02/25 09:50 BMI result Body Mass Index 24.7 Tobacco/Smoking Status: Tobacco use Status Tobacco use date assessed 06/02/25 06/02/25 09:50 Patient Tobacco Use Status Former Tobacco user 06/02/25 09:45 e-Cigarette/Vaping Use Never Used 06/02/25 09:45 Thrive Assessment: Date of Thrive Assessment Date Thrive assessed 04/01/25 06/02/25 09:45 Currently or been in a relationship where the following occur: No concerns reported Const Orientation/consciousness: patient oriented x3 HENMT Ears: hearing grossly normal bilaterally Neck Thyroid: Thyroid normal Lymphatic: no lymphadenopathy noted Resp Auscultation: clear to auscultation bilaterally Cardio Rate: regular rate Rhythm: regular rhythm Heart sounds: S1 normal heart sound present and S2 normal heart sound present GI Inspection: Yes normal to inspection Palpation (GI): Soft to palpation and Other GI palpation findings present (nontender, no cva tenderness) Auscultation: normoactive bowel sounds Rectal Exam - Male: Yes deferred Skin General skin exam: no rashes or lesions noted Neuro General: patient oriented x3, gait normal and no focal motor deficits Coding Level of Care Code Est Pt Level 4 (80362) Complex EM visit Add On G2211 Diagnoses Lump on neck R22.1 Chronic neck pain M54.2; G89.29 Lump in chest R22.2 Assessment & Plan Assessment & Plan (1) Lump on neck: Code(s): R22.1 - Localized swelling, mass and lump, neck Category: Medical Plan: CT of neck was ordered. Waiting for scheduling message sent today. (2) Chronic neck pain: Code(s): M54.2 - Cervicalgia; G89.29 - Other chronic pain Category: Medical Plan: Stable. Improved with PT. (3) Lump in chest: Code(s): R22.2 - Localized swelling, mass and lump, trunk Category: Medical Plan: Following with General surgery
[2025-06-02 09:50] VITALS: BP 127/79; PULSE 69; RESP 12; TEMP 36.8; O2SAT 98; BMI 24.7
--- OUTSIDE RECORDS SUMMARY | 2025-06-02 09:57 | XMS_ITS | Referral Summary ---
Author Organization [facility] Address [address] [place] [address] Care Team Providers Care Power System Electrical Engineer Name Role Phone Mignon Stone Primary Care [...] CENTER on file HS/FREE CARE Care Teams Power System Electrical Engineer Relationship Specialty Start Date End Date Mignon Stone PCP - General 03/13/22
== END 2025-06-02 10:12 | disposition home or self-care (01) ==
LOC: HO.HMCFM 09:31
PROVIDERS: PCP Physician Assistant; Visit Provider Physician Assistant
DX: R22.1 Localized swelling, mass and lump, neck (principal); M54.2 Cervicalgia; G89.29 Other chronic pain; R22.2 Localized swelling, mass and lump, trunk

== ENCOUNTER → 2025-06-02 09:30 | Outpatient (BNVA) | payer MEDICARE, SELFPAY | PROVIDERS: PCP Physician Assistant; Visit Provider Physician Assistant | DX: R22.1 Localized swelling, mass and lump, neck (principal); R22.2 Localized swelling, mass and lump, trunk; M54.2 Cervicalgia; G89.29 Other chronic pain | CPT/HCPCS: 99212 ==

== ENCOUNTER 2025-06-11 13:33 | Outpatient (REF) | payer MEDICARE, SELFPAY ==
--- OUTSIDE RECORDS SUMMARY | 2025-06-11 13:35 | XMS_ITS | Referral Summary ---
Author Organization [facility] Address [address] [place] [address] Care Team Providers Care High Reach Operator Name Role Phone Mignon Stone Primary Care [...] HOSPITAL on file HS/FREE CARE Care Teams High Reach Operator Relationship Specialty Start Date End Date Mignon Stone PCP - General 03/13/22
[2025-06-11 14:20] VITALS: BP 140/88; PULSE 86; RESP 15; TEMP 36.4; O2SAT 98; BMI 25.4
[2025-06-11 15:30] VITALS: BP 156/93; PULSE 75; RESP 18; O2SAT 99
--- NOTE | 2025-06-11 16:08 | P.OP_ITS ---
Operative Note Operative Note Date of Service: 06/11/25 Narrative: Preoperative diagnosis: Lipoma left flank, skin cyst posterior right ear, mass posterior neck Postoperative diagnosis: Same Procedure: Excision of lipoma left flank, excision skin cyst posterior right ear, excision mass posterior neck Surgeon: Sylvester Fuentes MD Pest Control Service Technician: Shanna Ty MS-3 Anesthesia: Local Indications for procedure: 64-year-old male patient with multiple lumps as noted above. Patient has requested excision of all 3 prior to his departure to [facility]. Operative findings: 3 cm lipoma left flank. 0.5 cm cyst of posterior right ear. 1 cm mass posterior neck Specimen: Lipoma left flank, cyst posterior right ear, mass posterior neck Estimated blood loss: 2 mL Complications: None Procedure details: Patient was brought to the minor surgery suite and placed in a right lateral decubitus position. The site of surgery was confirmed by the patient and consent confirmed. Local anesthesia was infiltrated over the palpable lipoma in the left flank. Incision was then made in an oblique fashion directly over the cyst and carried out through subcutaneous tissue up outer surface of the lipoma. This was then grasped with an Allis clamp and dissected free from the surrounding subcutaneous tissue and muscular tissue using a Metzenbaum scissors. Hemostasis was assured using a suture LigaSure of 3-0 Polysorb suture. The lesion was passed off the table and sent to pathology for further examination. Dermis was then reapproximated using interrupted 3-0 Polysorb sutures. Skin was then closed using a running subcuticular 4-0 Polysorb suture. Sterile dressings consisting of 2 x 2 gauze and Tegaderm were then applied. Attention was then directed to the right posterior ear. The patient was placed in a left lateral decubitus position. Both the posterior neck lesion and the posterior ear lesion were prepped with Betadine and draped in a sterile fashion. Local anesthesia was then infiltrated at both lesions. Beginning posterior ear, an elliptical incision was then made excised the entire cyst down to subcutaneous tissue. This was passed off the table and sent to pathology for further examination. Skin was then closed using an interrupted 4-0 nylon sutu re. Next an elliptical incision was made around the posterior neck lesion. This was oriented transversely in the neck. This was carried out through subcutaneous tissue and sharp dissection used to excise the fibrotic appearing lesion from the subcutaneous tissue. This was also passed off the table and sent to pathology for further examination. Skin was then closed using interrupted 4-0 nylon sutures. Sterile dressings were then applied to both the posterior neck and posterior ear lesion. The patient tolerated the procedure well. He was discharged home in stable condition.
== END 2025-06-11 13:34 | disposition home or self-care (01) ==
LOC: HO.MS 13:33
PROVIDERS: PCP Physician Assistant; Visit Provider Surgery
PROC: (CPT 11403; principal; 2025-06-11 14:00)
DX: D23.22 Other benign neoplasm of skin of left ear and external auricular canal (principal); D23.4 Other benign neoplasm of skin of scalp and neck; L72.9 Follicular cyst of the skin and subcutaneous tissue, unspecified
CPT/HCPCS: 11403; 11440; 11421; 88304; 88305; J2004

== ENCOUNTER → 2025-06-11 13:33 | Outpatient (BNV) | payer MEDICARE, MEDICAID, SELFPAY | PROVIDERS: PCP Physician Assistant; Visit Provider Surgery | DX: D17.1 Benign lipomatous neoplasm of skin and subcutaneous tissue of trunk (principal); D23.20 Other benign neoplasm of skin of unspecified ear and external auricular canal; R22.1 Localized swelling, mass and lump, neck | CPT/HCPCS: 11422; 11440; 21932 ==

== ENCOUNTER 2025-06-22 08:47 | Outpatient (AMB) | payer MEDICARE, MEDICAID, SELFPAY ==
--- OUTSIDE RECORDS SUMMARY | 2025-06-22 09:02 | XMS_ITS | Referral Summary ---
Author Organization [facility] Address [address] [place] [address] Care Team Providers Care Service Observer Chief Name Role Phone Mignon Stone Primary Care [...] Plan of Treatment Not on file Insurance [facility] on file HS/FREE CARE Care Teams Service Observer Chief Relationship Specialty Start Date End Date Mignon Stone PCP - General 03/13/22
--- NOTE | 2025-06-22 09:05 | A.OFFVIS_ITS ---
Vital Signs 06/22/25 09:09 Height 6 ft Weight 181 lb BMI 24.5 BP 139/81 Blood Pressure Location Lt brachial Position Sitting Pulse 67 Intake Visit Reasons: S/p excision lipoma left chest, post nek cyst rt p Intake Note: Patient is seen in office for post op assessment post excision of multiple lipomas. 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 All lesions were benign. He notes some swelling in the left chest below the excision site in his concerned about recurrence of the lipoma. Pathology revealed mature lobulated adipose tissue consistent with lipoma no atypia identified. 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 Lesion behind the posterior neck on the right side revealed deep dermal pseudocyst formation and surrounding dense fibrous tissue and sparse chronic inflammation. No malignancy identified. 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 The incision is well healed without redness or discharge. Assessment & Plan Assessment & Plan (1) Lump in chest: Code(s): R22.2 - Localized swelling, mass and lump, trunk Category: Medical (2) Lump on neck: Code(s): R22.1 - Localized swelling, mass and lump, neck Category: Medical Plan 64-year-old male patient presenting with several skin lesions returning 1 week following excision. There is some swelling in the left chest wall incision which appears consistent with a seroma. I offered ultrasound or needle aspiration to confirm however wishes to avoid this at this time. He will call if there was any concerning changes. He is planning to move to [facility] in the near future. Coding Level of Care Code Global (48920) Diagnoses Lump in chest R22.2 Lump on neck R22.1
[2025-06-22 09:09] VITALS: BP 139/81; PULSE 67; BMI 24.5
== END 2025-06-22 09:47 | disposition home or self-care (01) ==
LOC: HO.HGS 08:47
PROVIDERS: PCP Physician Assistant; Visit Provider Surgery
DX: R22.2 Localized swelling, mass and lump, trunk (principal); R22.1 Localized swelling, mass and lump, neck
CPT/HCPCS: 99024

== ENCOUNTER → 2025-06-22 08:47 | Outpatient (BNVA) | payer MEDICARE, MEDICAID, SELFPAY | PROVIDERS: PCP Physician Assistant; Visit Provider Surgery | DX: R22.2 Localized swelling, mass and lump, trunk (principal); R22.1 Localized swelling, mass and lump, neck | CPT/HCPCS: 99212 ==